=== PATIENT | female | born 1985 | race Caucasian/White ===

== ENCOUNTER 2018-10-31 11:04 | Inpatient (IN) | payer MEDICAID, OTHER ==
[2018-10-31 16:43] LABS: ADD MAN DIFF? NO
[2018-10-31 16:51] LABS: WHITE BLOOD COUNT 5.9 10^3/ul (4.8-10.8)
[2018-10-31 16:51] LABS: BASOPHILS % 0.5 % (0.0-2.0); EOSINOPHILS # 0.1 10^3/ul (0.0-0.5); EOSINOPHILS % 1.2 % (0.0-7.0); HEMATOCRIT 41.7 % (37.0-47.0); LYMPHOCYTES # 1.8 10^3/ul (0.8-2.9); LYMPHOCYTES % 30.7 % (15.0-51.0); MEAN CORPUSCULAR HEMOGLOBIN 28.9 pg (29.0-33.0); MEAN CORPUSCULAR HGB CONC 33.6 g/dl (32.0-37.0); MEAN PLATELET VOLUME 10.9 fl (7.4-10.4); MONOCYTE # 0.5 10^3/ul (0.3-0.9); MONOCYTES % 8.7 % (0.0-11.0); NEUTROPHIL # 3.5 10^3/ul (1.6-7.5); NEUTROPHILS % 58.7 % (39.0-77.0); PLATELET COUNT 220 10^3/UL (140-415); RED BLOOD COUNT 4.85 10^6/ul (4.20-5.40); RED CELL DISTRIBUTION WIDTH 11.9 % (11.5-14.5)
[2018-10-31 17:09] LABS: INR 0.95; PARTIAL THROMBOPLASTIN TIME 30.4 Sec (23.0-35.0); PROTIME 12.8 Sec (11.9-14.9)
[2018-10-31 17:14] LABS: ALANINE AMINOTRANSFERASE 29 IU/L (13-69); ALBUMIN 4.6 g/dl (3.3-4.9); ALBUMIN/GLOBULIN RATIO 1.64; ALKALINE PHOSPHATASE 51 IU/L (42-121); ANION GAP 7 (5-13); ASPARTATE AMINO TRANSFERASE 25 IU/L (15-46); BILIRUBIN,INDIRECT 0.6 mg/dl (0-1.1); BILIRUBIN,TOTAL 0.6 mg/dl (0.2-1.3); BLOOD UREA NITROGEN 10 mg/dl (7-20); CALCIUM 9.6 mg/dl (8.4-10.2); CARBON DIOXIDE 30 mmol/L (21-31); CHLORIDE 102 mmol/L (97-110); CREATININE 0.54 mg/dl (0.44-1.00); Estimated GFR > 60 mL/min (>60); GLUCOSE 99 mg/dl (70-220); LIPASE 183 U/L (23-300); POTASSIUM 3.6 mmol/L (3.5-5.1); SODIUM 139 mmol/L (135-144); TOTAL PROTEIN 7.4 g/dl (6.1-8.1)
[2018-10-31] MEDS ORDERED: ONDANSETRON 4 MG INJ IV (18:30)
[2018-10-31] MEDS ORDERED: ACETAMINOPHEN 325 MG TAB PO (18:30)
[2018-10-31] MEDS ORDERED: NACL 0.9% 3 ML SYG IV (18:30)
[2018-10-31] MEDS ORDERED: HYDROmorphONE 0.5 MG/0.5 ML SYG IV (19:00)
[2018-10-31] MEDS: PIPER-TAZO 3.375 GM IV (PMX) 100 ML IVPB (21:00)
[2018-10-31] MEDS: DEXTROSE 5%-0.45% NACL 1,000 ML IV (22:19)
[2018-11-01] MEDS: PIPER-TAZO 3.375 GM IV (PMX) 100 ML IVPB ×4 (01:00→17:57)
[2018-11-01 05:49] LABS: ADD MAN DIFF? NO
[2018-11-01 05:55] LABS: BASOPHILS % 0.4 % (0.0-2.0); EOSINOPHILS # 0.1 10^3/ul (0.0-0.5); EOSINOPHILS % 1.1 % (0.0-7.0); HEMATOCRIT 39.8 % (37.0-47.0); HEMOGLOBIN 13.2 g/dl (12.0-16.0); LYMPHOCYTES # 2.1 10^3/ul (0.8-2.9); LYMPHOCYTES % 28.6 % (15.0-51.0); MEAN CORPUSCULAR HEMOGLOBIN 28.8 pg (29.0-33.0); MEAN CORPUSCULAR HGB CONC 33.2 g/dl (32.0-37.0); MEAN CORPUSCULAR VOLUME 86.9 fl (82.0-101.0); MEAN PLATELET VOLUME 11.3 fl (7.4-10.4); MONOCYTE # 0.6 10^3/ul (0.3-0.9); MONOCYTES % 8.4 % (0.0-11.0); NEUTROPHIL # 4.6 10^3/ul (1.6-7.5); NEUTROPHILS % 61.2 % (39.0-77.0); PLATELET COUNT 198 10^3/UL (140-415); RED BLOOD COUNT 4.58 10^6/ul (4.20-5.40); RED CELL DISTRIBUTION WIDTH 12.2 % (11.5-14.5)
[2018-11-01 05:55] LABS: WHITE BLOOD COUNT 7.5 10^3/ul (4.8-10.8)
[2018-11-01] MEDS: PANTOPRAZOLE 40 MG INJ IV (06:00)
[2018-11-01 06:25] LABS: ALANINE AMINOTRANSFERASE 27 IU/L (13-69); ALBUMIN 4.1 g/dl (3.3-4.9); ALBUMIN/GLOBULIN RATIO 1.78; ALKALINE PHOSPHATASE 45 IU/L (42-121); ANION GAP 10 (5-13); ASPARTATE AMINO TRANSFERASE 21 IU/L (15-46); BILIRUBIN,INDIRECT 0.8 mg/dl (0-1.1); BILIRUBIN,TOTAL 0.8 mg/dl (0.2-1.3); BLOOD UREA NITROGEN 14 mg/dl (7-20); CALCIUM 9.8 mg/dl (8.4-10.2); CARBON DIOXIDE 28 mmol/L (21-31); CHLORIDE 105 mmol/L (97-110); CREATININE 0.67 mg/dl (0.44-1.00); Estimated GFR > 60 mL/min (>60); GLUCOSE 107 mg/dl (70-220); POTASSIUM 3.9 mmol/L (3.5-5.1); SODIUM 143 mmol/L (135-144); TOTAL PROTEIN 6.4 g/dl (6.1-8.1)
[2018-11-01] MEDS ORDERED: ACETAMINOPHEN 1000MG/100ML IV 100 ML IVPB (14:00)
[2018-11-01] MEDS: DEXTROSE 5%-0.45% NACL 1,000 ML IV ×2 (16:00→22:55)
[2018-11-01] MEDS ORDERED: PROPOFOL 100 ML (16:55)
[2018-11-01] MEDS ORDERED: ROCURONIUM 50 MG INJ (16:58)
[2018-11-01] MEDS: LIDOCAINE 1% (MPF) 30 ML INJ (17:43)
[2018-11-01] MEDS: BUPIVACAINE 0.5%/EPI (SDV) 30 ML INJ (17:43)
[2018-11-01] MEDS ORDERED: ONDANSETRON 4 MG INJ (18:38)
[2018-11-01] MEDS ORDERED: DEXAMETHASONE 4 MG/ML 1 ML INJ (18:38)
[2018-11-01] MEDS ORDERED: NEOSTIGMINE 3 MG/3 ML SYRINGE (18:39)
[2018-11-01] MEDS ORDERED: GLYCOPYRROLATE 0.4 MG INJ (18:39)
[2018-11-01] MEDS ORDERED: hydrALAzine 20 MG INJ IV (19:00)
[2018-11-01] MEDS ORDERED: LABETALOL HCL 20MG INJ IV (19:00)
[2018-11-01] MEDS ORDERED: FENTAnyl 50 MCG/ML VIAL IV ×2 (19:00)
[2018-11-01] MEDS ORDERED: OXYCODONE/ACETAMINOPHEN (5/325) TAB PO ×2 (19:00)
[2018-11-01] MEDS ORDERED: ONDANSETRON 4 MG INJ IV (19:00)
[2018-11-01] MEDS ORDERED: EPHEDrine SULFATE 50 MG/5 ML SYG IV (19:00)
[2018-11-01] MEDS ORDERED: DIPHENHYDRAMINE 50 MG INJ IV (19:00)
[2018-11-01] MEDS ORDERED: METOCLOPRAMIDE 10 MG INJ IV (19:00)
[2018-11-01] MEDS ORDERED: HYDROmorphONE 1 MG/5 ML IV SYRINGE IV ×2 (19:00)
[2018-11-01] MEDS: HYDROmorphONE 1 MG/5 ML IV SYRINGE IV (19:00)
[2018-11-01] MEDS ORDERED: ALBUTEROL 0.083% (NEB) 2.5 MG/3 ML AMP HHN (19:00)
[2018-11-01] MEDS: FENTAnyl 50 MCG/ML VIAL IV (19:01)
[2018-11-01] MEDS: MEPERIDINE 25 MG INJ IV (19:01)
[2018-11-01] MEDS: KETOROLAC 30 MG INJ IV (19:02)
[2018-11-02] MEDS: PIPER-TAZO 3.375 GM IV (PMX) 100 ML IVPB ×2 (00:59→05:57)
[2018-11-02] MEDS: PANTOPRAZOLE 40 MG INJ IV (05:56)
[2018-11-02 06:45] LABS: ADD MAN DIFF? NO
[2018-11-02 06:59] LABS: WHITE BLOOD COUNT 8.3 10^3/ul (4.8-10.8)
[2018-11-02 06:59] LABS: BASOPHILS % 0.1 % (0.0-2.0); HEMATOCRIT 41.3 % (37.0-47.0); HEMOGLOBIN 13.6 g/dl (12.0-16.0); LYMPHOCYTES # 1.1 10^3/ul (0.8-2.9); LYMPHOCYTES % 13.1 % (15.0-51.0); MEAN CORPUSCULAR HEMOGLOBIN 28.6 pg (29.0-33.0); MEAN CORPUSCULAR HGB CONC 32.9 g/dl (32.0-37.0); MEAN CORPUSCULAR VOLUME 86.8 fl (82.0-101.0); MEAN PLATELET VOLUME 11.6 fl (7.4-10.4); MONOCYTE # 0.4 10^3/ul (0.3-0.9); MONOCYTES % 4.7 % (0.0-11.0); NEUTROPHIL # 6.8 10^3/ul (1.6-7.5); NEUTROPHILS % 81.9 % (39.0-77.0); PLATELET COUNT 222 10^3/UL (140-415); RED BLOOD COUNT 4.76 10^6/ul (4.20-5.40); RED CELL DISTRIBUTION WIDTH 11.9 % (11.5-14.5)
[2018-11-02 07:20] LABS: ALANINE AMINOTRANSFERASE 26 IU/L (13-69); ALBUMIN 4.2 g/dl (3.3-4.9); ALBUMIN/GLOBULIN RATIO 1.68; ALKALINE PHOSPHATASE 50 IU/L (42-121); ANION GAP 14 (5-13); ASPARTATE AMINO TRANSFERASE 21 IU/L (15-46); BILIRUBIN,INDIRECT 0.7 mg/dl (0-1.1); BILIRUBIN,TOTAL 0.7 mg/dl (0.2-1.3); BLOOD UREA NITROGEN 12 mg/dl (7-20); CALCIUM 9.2 mg/dl (8.4-10.2); CARBON DIOXIDE 23 mmol/L (21-31); CHLORIDE 104 mmol/L (97-110); Estimated GFR > 60 mL/min (>60); GLUCOSE 107 mg/dl (70-220); POTASSIUM 4.3 mmol/L (3.5-5.1); SODIUM 141 mmol/L (135-144); TOTAL PROTEIN 6.7 g/dl (6.1-8.1)
[2018-11-02 07:28] LABS: MAGNESIUM 1.8 mg/dl (1.7-2.5)
== END 2018-11-02 12:45 | disposition home or self-care (01) | DRG 742 ==
LOC: FTE 11:04 → 2NE 18:03
PROC: 0UC Female Reproductive System, Extirpation (ICD-10-PCS; principal; 2018-11-01 11:00)
PROC: 0WQF4ZZ Repair Abdominal Wall, Percutaneous Endoscopic Approach (ICD-10-PCS; 2018-11-01 11:00)
PROC: 0UQ Female Reproductive System, Repair (ICD-10-PCS; 2018-11-01 11:00)
DX: S37.69XA Other injury of uterus, initial encounter (principal); T83.89XA Other specified complication of genitourinary prosthetic devices, implants and grafts, initial encounter; D18.03 Hemangioma of intra-abdominal structures; K43.9 Ventral hernia without obstruction or gangrene; K40.20 Bilateral inguinal hernia, without obstruction or gangrene, not specified as recurrent
CPT/HCPCS: 36415; 71045; 72170; 74176; 76705; 76830; 76856; 80053; 81025; 83036; 83690; 83735; 85025; 85610; 85730; 88300; 93005; 93306; 99285-25